=== PATIENT | male | born 1990 | race Caucasian/White ===

== ENCOUNTER 2020-10-13 10:41 | Emergency (ER) | payer SELFPAY ==
[~2020-10-13] VITALS: Ht 180.3 cm; Wt 88.5 kg
[~2020-10-13 10:41] MED LIST: CODE BLUE PARTICIPANT 1 EA MISC MC ONE; METO-485 PO
--- NOTE | 2020-10-13 10:41 | NUR ---
1039---Patient BIBA ALS accompanied by [facility] with CPR in progress Patient transferred to bed 10 and CPR was continued by [facility] staff. Dr. Bravo is evaluating the patient at bedside.
--- NOTE | 2020-10-13 10:43 | NUR ---
PT BIBA FROM HOME FULL ARREST. PER EMS PT WAS FOUND ON KNEES BY FRIENDS S/P SMOKING FENTANYL, UNKNOWN AMOUNT. POSSIBLE LAST SEEN NORMAL AROUND 1000. PATIENTS FRIEND GIVEN 4MG NARCAN AND RECEIVED 4MG NARCAN IN ROUTE WELL 3MG EPI. SHOCKED IN ROUTE WITH NO ROSC ACHEIVED. CHEST COMPRESSIONS CONTINUED UPON ARRIVAL. SKIN PALE AND COOL TO THE TOUCH. SAID AT BEDSIDE UPON ARRIVAL OF PATIENT. MEDHX: SUBSTANCE ABUSE
[2020-10-13] MEDS ORDERED: NALOXONE PFS 2 MG/2 ML SYR ONE (10:49)
--- NOTE | 2020-10-13 10:53 | NUR ---
UNABLE TO ACHEIVE ROSC, PATIENT ASYSTOLIC AND APNEIC AT THIS TIME. TIME OF CALLED AT [address] MCELROY.
[2020-10-13 10:56] VITALS: BP 0/0
--- NOTE | 2020-10-13 11:01 | NUR ---
CALLED [facility] AND SPOKE TO JOSE. CASE #[id number]
--- NOTE | 2020-10-13 11:07 | NUR ---
SPOKE WITH JOSE EDUARDO AT CORONERS OFFICE. WAITING FOR CALL BACK FROM [facility]EN[facility] OFFICE [facility]AME W[facility] AT THIS TIME.
--- NOTE | 2020-10-13 11:10 | NUR ---
ATTEMPTED TO CONTACT PATIENTS MOTHER, UNABLE TO DUE TO INVALID PHONE NUMBER.
--- NOTE | 2020-10-13 12:08 | NUR ---
SPOKE WITH DEPUTY ALVAREZ AT CORONERS OFFICE STATING HE WOULD SPEAK TO [employer]PER[employer] AND CALL BACK.
--- NOTE | 2020-10-13 12:23 | NUR ---
SPOKE WITH DEPUTY ALVAREZ FROM CORONERS OFFICE. STATES BODY WILL BE PICKED UP BY [facility] IN APPROX 1 HR. CASE # [id number]
--- NOTE | 2020-10-13 13:08 | NUR ---
STORY EDITOR AT BEDSIDE TO TAKE PATIENT TO CORONERS OFFICE
== END 2020-10-13 10:53 ==
LOC: MED 10:41
DX: T40.2X1A Poisoning by other opioids, accidental (unintentional), initial encounter (principal); J96.02 Acute respiratory failure with hypercapnia; I46.8 Cardiac arrest due to other underlying condition; Y92.89 Other specified places as the place of occurrence of the external cause
CPT/HCPCS: 31500; 92950; 99285; J2310